=== PATIENT | female | born 1960 | race African-American/Black ===

== ENCOUNTER 2022-04-18 22:28 | Emergency (ER) | payer SELFPAY ==
[~2022-04-18] VITALS: Ht 162.6 cm; Wt 75.0 kg
[2022-04-19] MEDS ORDERED: LISI10TA26 MT (00:49)
[2022-04-19] MEDS ORDERED: LISINOPRIL 10MG TABLET PO ONE (01:00)
[2022-04-19 01:42] LABS: BG BASE EXCESS 0.3 mmol/L (-2.0-2.0); BG CARBOXYHEMOGLOBIN 0.1 % (0.5-1.5); BG DEOXYHEMOGLOBIN 3.9 % (0.0-5.0); BG FRACTION INSPIRED OXYGEN 21; BG HCO3 ACT 25.1 mmol/L (22.0-26.0); BG METHEMOGLOBIN 0.3 % (0.0-1.5); BG OXYGEN SATURATION 96.1 % (92.0-98.5); BG OXYHEMOGLOBIN 95.7 % (94.0-97.0); BG PCO2 41.2 mmHg (35.0-45.0); BG PH 7.402 (7.350-7.450); BG SAMPLE SITE RIGHT RADIAL; BG TOTAL HEMOGLOBIN 11.9 g/dL (12.0-18.0); BG VENT MODE ROOM AIR
[2022-04-19 02:32] VITALS: BP 160/55
== END 2022-04-19 02:34 | disposition home or self-care (01) ==
LOC: ER 22:28
DX: I10 Essential (primary) hypertension (principal); G89.29 Other chronic pain; Z76.0 Encounter for issue of repeat prescription; Z88.6 Allergy status to analgesic agent; Z88.8 Allergy status to other drugs, medicaments and biological substances; Z98.890 Other specified postprocedural states
CPT/HCPCS: 36600; 82375; 82805; 99283